=== PATIENT | male | born 1995 | race Caucasian/White ===

== ENCOUNTER 2022-03-15 09:22 | Emergency (ER) | payer OTHER, SELFPAY ==
--- NOTE | ~2022-03-15 | XR_ITS ---
XR ankle RT min 3V 03/15/2022 09:55 INDICATION: Right ankle pain PROCEDURE: 4 views right ankle COMPARISON: No prior studies for comparison. FINDINGS: Fracture, dislocation or subluxation is not identified. The soft tissues appear within norm al limits. No foreign bodies are identified. IMPRESSION: 1: NO ACUTE BONE OR JOINT ABNORMALITY IDENTIFIED. Reviewed, dictated and finalized at location A.
[2022-03-15 09:36] VITALS: BP 134/81; PULSE 87; RESP 16; TEMP 37.3; O2SAT 100
--- NOTE | 2022-03-15 10:10 | ED.GENADULT ---
HPI - General Adult General Chief complaint: Extremity Injury, Lower Stated complaint: Injured right ankle Source: patient Mode of arrival: ambulatory Limitations: no limitations History of Present Illness HPI narrative: Patient presents for evaluation of right ankle pain since yesterday. Hhe indicates he was at a [employer] and his feet were wet when walking around. He did not see a step and twisted his ankle when stepping down off the ledge. Since that time, he has had persistent pain in the lateral aspect of the right ankle. He rates pain 5 out of 10 in severity. No descriptive quality of the pain. No paresthesias. Pain is worse with weightbearing and movement. He took a dose of an over the counter anti-inflammatory medication with some improvement in his symptoms thereafter. He has also applied ice to the area. No additional complaints or concerns Related Data Allergies Allergy/AdvReac Type Severity Reaction Status Date / Time No Known Allergies Allergy Verified 03/15/22 10:02 Review of Systems Review of Systems: CONSTITUTIONAL: Denies fever, chills, or sweats. EYES: Denies visual changes, redness, or discharge. ENT: Denies rhinorrhea, congestion, sore throat, or otalgia. CARDIOVASCULAR: Denies chest pain, palpitations, or edema. RESPIRATORY: Denies cough or dyspnea. GASTROINTESTINAL: Denies abdominal pain, nausea, vomiting, or diarrhea. GENITOURINARY: Denies dysuria or hematuria. SKIN: Denies rash or itching. MUSCULOSKELETAL: Reports right ankle pain. Denies back pain or myalgia. NEUROLOGIC: Denies headache, numbness, dizziness, or weakness. PSYCHIATRIC: Denies anxiety or depression. [facility] Past Medical History Medical History No pertinent past medical history Surgical History Surgical History No pertinent past surgical history Family History Family History Mother Family history non-contributory Social History Social History Smoking status: Never smoker Substance use: never Additional living arrangements comments: Lives with girlfriend Gender identity (if verbalized by the patient): Male Sexual Orientation (if Verbalized by the Patient): Straight or Heterosexual Spiritual care concerns: No Exam Narrative: GENERAL: Well-appearing, well-nourished, and in no acute distress. HEAD: Normocephalic, atraumatic. EYES: PERRLA and EOMI. ENT: Nares clear, no rhinorrhea or epistaxis. Mucous membranes moist. Oropharynx without tonsillar hypertrophy exudate or other lesions. Bilateral TMs pearly mcnair nonbulging NECK: Supple. No adenopathy or masses. No carotid bruits or JVD CHEST: Clear to auscultation. No respiratory distress. No wheezes rales or rhonchi HEART: Regular rate and rhythm. No murmur heard. Normal peripheral pulses. ABDOMEN: Soft, nontender, nondistended, normal active bowel sounds. EXTREMITIES: Tenderness just inferior to the right lateral malleolus. No tenderness over medial malleolus. No tenderness over Achilles tendon. Able to dorsi and plantarflex the right foot. Able to wiggle all digits of the right foot. Sensation is intact. No swelling, crepitus or deformity in right foot or ankle SKIN: Warm, dry, no rash. NEURO: No focal deficits. Alert and oriented x3. PSYCH: Normal mood and affect. Course Course Emergency Course: This is a 26-year-old male who presented with complaints of pain in the right ankle after twisting it last night. X-ray was negative for fracture. He was given an injection of Toradol. He was provided with an Jose wrap. Will DC with high-dose ibuprofen. Advised on RICE therapy. He should follow-up outpatient for further evaluation and treatment and return for worsening symptoms. Patient in agreement with plan of care. Le
[2022-03-15] MEDS: KETOROLAC (*BKC) 60 MG/2 ML VIAL IM (10:12)
== END 2022-03-15 10:40 | disposition home or self-care (01) ==
PROVIDERS: Emergency Provider Nurse Practitioner
DX: S93.401A Sprain of unspecified ligament of right ankle, initial encounter (principal); X50.9XXA Other and unspecified overexertion or strenuous movements or postures, initial encounter
CPT/HCPCS: 73610; 96372; 99213; G0463; J1885